=== PATIENT | male | born 1945 | race Caucasian/White ===

== ENCOUNTER 2023-06-28 08:00 | Day surgery (SDC) | payer OTHER ==
[~2023-06-28] VITALS: Ht 190.5 cm; Wt 75.8 kg
[~2023-06-28 08:00] MED LIST: ASPI81CH PO; CARBOXYMETHYLC1 EACH UD; CLON.5 PO; ELIQUIS5 M2 PO; METO25 PO; STIVARGA40 MG PO; Tambocor100 MG PO
[2023-06-28 08:54] VITALS: BP 137/58
[2023-06-28 09:00] VITALS: BP 141/54
--- NOTE | 2023-06-28 11:35 | NUR ---
PATIENT RESTING IN BED, SLEEPING. DAUGHTER AT BEDSIDE
--- NOTE | 2023-06-28 11:45 | NUR ---
PATIENT RETURNED FROM [employer]. PATIENT SITTING UP IN BED EATING LUNCH AND VISITING WITH DAUGHTER. DENIES PAIN. DRESSING D&I
--- NOTE | 2023-06-28 12:29 | NUR ---
Dr Hines here to discuss procedure with patient.
--- NOTE | 2023-06-28 13:23 | NUR ---
patient and daughter verbalized understanding of dischsrge instructions and precautions. iv site dced with catheter intact. patient sitting at side of bed dressed. dressings intact.
--- NOTE | 2023-06-28 13:27 | NUR ---
patient ambulated to bathroom. became dizzy and returned to be. two tylenol 325 given for mild pain left side. patient resting now.
--- NOTE | 2023-06-28 14:15 | NUR ---
UPON RETURNING PAULINO LUNCH. PATIENT SITTING IN WHEELCHAIR WAITING TO GO HOME. PATIENT TRANSFERRED VIA WHEEL CHAIR TO WAITING VEHICLE WITH DAUGHTER. PATIENT STATES THAT PAIN IN SIDE IS NOT VERY BAD, BUT TIRED. SHKING AND COLD WHEN OUTSIDE BEFORE GETTING IN VEHICLE.
[2023-08-05] MEDS ORDERED: CEFP200 PO (12:51)
== END 2023-06-28 13:20 | disposition home or self-care (01) ==
LOC: MHTC 08:00
DX: Z43.6 Encounter for attention to other artificial openings of urinary tract (principal); C49.A0 Gastrointestinal stromal tumor, unspecified site
CPT/HCPCS: 50389; 50435; 99152; 99153; A9270; C1729; C1769; J2250; J3010; J7030; J7050; Q9967